=== PATIENT | female | born 2000 | race Caucasian/White ===

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

== ENCOUNTER 2020-01-06 09:00 | Outpatient (CLI) | payer BC, MEDICAID ==
[2020-01-06 16:15] LABS: MUDS CUTOFF CONCENTRATIONS CUTOFF CONC BELOW:
[2020-01-06 16:27] LABS: BILIRUBIN,URINE NEGATIVE (NEGATIVE); GLUCOSE, URINE (UA) NEGATIVE (NEGATIVE); KETONES,URINE (UA) NEGATIVE (NEGATIVE); LEUKOCYTE ESTERASE, URINE TRACE (NEGATIVE); NITRITE,URINE POSITIVE (NEGATIVE); OCCULT BLOOD,URINE NEGATIVE (NEGATIVE); PROTEIN,URINE NEGATIVE (NEGATIVE); UROBILINOGEN,URINE 0.2 (NORMAL) E.U./dL (NORMAL)
[2020-01-06 16:36] LABS: CLARITY,URINE HAZY (CLEAR)
[2020-01-06 16:37] LABS: BACTERIA,URINE Many /HPF (None Seen); RBC,URINE 0-5 /HPF (0-5); SQUAMOUS EPITHELIAL CELL,UR MANY Squamous (<= Few)
[2020-01-06 16:42] LABS: AMPHETAMINE SCREEN,URINE NEGATIVE (NEGATIVE); BENZODIAZEPINES SCREEN, URINE NEGATIVE (NEGATIVE); COCAINE SCREEN URINE NEGATIVE (NEGATIVE); METHADONE SCREEN, URINE NEGATIVE (NEGATIVE); METHAMPHETAMINES SCREEN, URINE NEGATIVE (NEGATIVE); OPIATE SCREEN, URINE NEGATIVE (NEGATIVE); OXYCODONE SCREEN, URINE NEGATIVE (NEGATIVE); PROPOXYPHENE SCREEN, URINE NEGATIVE (NEGATIVE); TRICYCLIC ANTIDEPRESSANT,URINE NEGATIVE (NEGATIVE)
== END 2020-01-06 23:59 | disposition home or self-care (01) ==
LOC: LAB.R 09:00
PROVIDERS: ATTEND Obstetrics & Gynecology
DX: Z32.01 Encounter for pregnancy test, result positive (principal)
CPT/HCPCS: 80306; 81001; 87086

== ENCOUNTER 2020-01-09 18:24 | Outpatient (CLI) | payer MEDICAID | END 2020-01-09 18:25 | disposition home or self-care (01) | LOC: COV 18:24 | PROVIDERS: ATTEND Family Medicine | DX: Z20.828 Contact with and (suspected) exposure to other viral communicable diseases (principal) ==

== ENCOUNTER 2020-01-18 13:52 | Outpatient (CLI) | payer MEDICAID ==
--- NOTE | 2020-01-18 16:07 | Ultrasound Report ---
PROCEDURE: OB First Trimester w/TV INDICATIONS: POSTIVE TEST OUTSIDE/PRIOR DATING DATA: Last menstrual period (LMP): 12/06/2019. LMP-based estimated date of delivery (STAN): 09/11/2020. First dating scan (date and location): 01/18/2020. Estimated date of delivery (STAN) from first dating scan: 09/12/2020. TECHNIQUE: Real-time scanning was performed of the fetus and maternal pelvic organs, with image documentation. Endovaginal scanning was also performed to better visualize the fetus and maternal ovaries. COMPARISON: None FINDINGS: Embryo: Single change from previous is identified with crown-rump length measuring 0.35 mm correspon ding to 6 weeks 0 days. heart tones are detected at 100 bpm. There is a small subchorionic hemo rrhage measuring 33 x 13 x 22 mm. Measurement variability in dating: +/- 4 weeks by LMP, +/- 7 days by mean sac diameter (use before 6 weeks gestation if crown-rump length not able to be measured), +/- 5 days by crown-rump length (6-12 weeks gestation). Maternal organs: Ovaries demonstrate a left corpus luteal cyst.. Limited images through the kidneys demonstrate no hydronephrosis. IMPRESSION: 1. Single live intrauterine with ultrasound gestational age of 6 weeks 0 days corresponding to ultrasound STAN of 09/12/2020. 2. Small subchorionic hemorrhage. 3. Recommend follow-up imaging at 20-22 weeks for dates and anatomy. Reviewed by: Gosia Salinas MD on 01/18/2020 4:06 PM PST Approved by: Gosia Salinas MD on 01/18/2020 4:06 PM PST Station ID: [id number]
== END 2020-01-18 13:53 | disposition home or self-care (01) ==
LOC: DI 13:52
PROVIDERS: ATTEND Obstetrics & Gynecology
DX: O20.9 Hemorrhage in early pregnancy, unspecified (principal); Z3A.01 Less than 8 weeks gestation of pregnancy
CPT/HCPCS: 76801; 76817

== ENCOUNTER 2020-02-09 08:00 | Outpatient (CLI) | payer MEDICAID ==
[2020-02-09 22:21] LABS: TRICHOMONAS VAGINALIS DNA NEGATIVE (NEGATIVE)
== END 2020-02-09 23:59 | disposition home or self-care (01) ==
LOC: LAB.WC 08:00
PROVIDERS: ATTEND Obstetrics & Gynecology
DX: Z11.3 Encounter for screening for infections with a predominantly sexual mode of transmission (principal)
CPT/HCPCS: 87491; 87591; 87661

== ENCOUNTER 2020-03-01 15:06 | Outpatient (CLI) | payer MEDICAID ==
[2020-03-01 15:50] LABS: BASOPHILS % (AUTO) 0.3 %; EOSINOPHILS # (AUTO) 0.1 10^3/uL (0.0-0.7); EOSINOPHILS % (AUTO) 0.9 %; HCT - HEMATOCRIT 36.3 % (37.0-47.0); HGB - HEMOGLOBIN 12.3 g/dL (12.0-16.0); LYMPHOCYTES # (AUTO) 2.3 10^3/uL (1.5-3.5); LYMPHOCYTES % (AUTO) 19.7 %; MEAN CORPUSCULAR HEMOGLOBIN 31.1 pg (27.0-31.0); MEAN CORPUSCULAR HGB CONC 33.9 g/dL (32.0-36.0); MEAN CORPUSCULAR VOLUME 91.7 fL (81.0-99.0); MEAN PLATELET VOLUME 9.3 fL (7.9-10.8); MONOCYTES # (AUTO) 0.3 10^3/uL (0.0-1.0); MONOCYTES % (AUTO) 2.9 %; NEUTROPHILS # (AUTO) 8.8 10^3/uL (1.5-6.6); NEUTROPHILS % (AUTO) 75.7 %; PLT - PLATELET COUNT 319 10^3/uL (130-450); RED BLOOD COUNT 3.96 10^6/uL (4.20-5.40); RED CELL DISTRIBUTION WIDTH 12.1 % (12.0-15.0); WHITE BLOOD COUNT 11.6 x10^3/uL (4.8-10.8)
[2020-03-03 13:44] LABS: HEPATITIS B SURFACE ANTIGEN NON-REACTIVE (NON-REACTIVE); HEPATITIS C ANTIBODY NON-REACTIVE (NON-REACTIVE)
[2020-03-03 14:26] LABS: HIV AG/AB 4TH GEN NON-REACTIVE (NON-REACTIVE)
== END 2020-03-01 15:07 | disposition home or self-care (01) ==
LOC: LAB 15:06
PROVIDERS: ATTEND Obstetrics & Gynecology
DX: Z36.89 Encounter for other specified antenatal screening (principal)
CPT/HCPCS: 36415; 81599; 85025; 86592; 86762; 86787; 86803; 86850; 86900; 86901; 87340; 87389

== ENCOUNTER 2020-03-30 16:03 | Outpatient (CLI) | payer MEDICAID | END 2020-03-30 16:04 | disposition home or self-care (01) | LOC: LAB 16:03 | PROVIDERS: ATTEND Obstetrics & Gynecology | DX: O09.90 Supervision of high risk pregnancy, unspecified, unspecified trimester (principal) | CPT/HCPCS: 36415; 81511; 81599 ==

== ENCOUNTER 2020-04-13 08:00 | Outpatient (CLI) | payer MEDICAID ==
[2020-04-13 21:21] LABS: CANDIDA GROUP DNA POSITIVE (NEGATIVE); CANDIDA KRUSEI DNA NEGATIVE (NEGATIVE); TRICHOMONAS VAGINALIS DNA NEGATIVE (NEGATIVE)
== END 2020-04-13 23:59 | disposition home or self-care (01) ==
LOC: LAB.R 08:00
PROVIDERS: ATTEND Advanced Practice Midwife
DX: N89.8 Other specified noninflammatory disorders of vagina (principal)
CPT/HCPCS: 87661; 87801

== ENCOUNTER 2020-04-24 12:29 | Outpatient (CLI) | payer MEDICAID ==
--- NOTE | 2020-04-24 17:17 | Ultrasound Report ---
PROCEDURE: OB Detailed Eval INDICATIONS: SUPERVISION OF HIGH RISK OUTSIDE/PRIOR DATING DATA: Last menstrual period (LMP): 12/06/2019. LMP-based estimated date of delivery (STAN): 09/12/2019. First dating scan (date and location): 03/19/2019. Estimated date of delivery (STAN) from provider stated STAN: 09/11/2020. TECHNIQUE: Real-time scanning was performed of the fetus, with image documentation and biometric measurements. COMPARISON: OB ultrasound 01/18/2020 FINDINGS: General: A single living intrauterine gestation is present. Presentation: Vertex Placenta: Placental position is anterior, without previa. Amniotic fluid index: 13.3 cm, 39th percentile for gestational age, largest pocket 4 cm . heart rate: 157 beats per minute. Maternal cervical canal: 4.3 cm long; normal length is 2.5 cm or more. biometrics: Biparietal diameter: 4.3 cm 19 weeks 2 days Head circumference: 19.4 cm 20 weeks 0 days Abdominal circumference: 14.7 cm 20 weeks 0 days Femur length: 3.5 cm 21 weeks 0 days Estimated gestational age from initial scan: 20 weeks 0 days Composite gestational age from present scan: 19 weeks 6 days Estimated weight and percentile: 349 g 67th percentile Measurement variability in biometric dating: +/- 10 days from 12-20 weeks gestation, +/- 2 weeks from 20-30 weeks gestation, +/- 3 weeks at 30 weeks gestation or later. Anatomic survey: Neuro: Ventricles are normal at less than 10 mm. Cisterna magna is normal at 3-11 mm. Cerebellum i s normal in size and morphology. Nuchal skin fold: Normal at less than 6 mm between 14 and 20 weeks gestational age. Face: Nose and lips, facial profile are normal. Spine: No evidence for spina bifida. Heart: 4-chambered heart is present, with normal ventricular outflow tracts. Diaphragm: Diaphragm is intact. Stomach: Left-sided stomach is present. Kidneys: No hydronephrosis. Normal is less than 5 mm in 2nd trimester, less than 7 mm in 3rd trimester. Cord: 3 vessel cord has orthotopic insertion. Bladder: Normal in size. Extremities: All 4 extremities are visualized. IMPRESSION: 1. Single live intrauterine with appropriate growth. 2. Anatomy is within normal limits. Reviewed by: Gosia Salinas MD on 04/24/2020 4:16 PM AKST Approved by: Gosia Salinas MD on 04/24/2020 4:16 PM AKST Station ID: [id number]
== END 2020-04-24 12:30 | disposition home or self-care (01) ==
LOC: DI 12:29
PROVIDERS: ATTEND Obstetrics & Gynecology
DX: O09.92 Supervision of high risk pregnancy, unspecified, second trimester (principal); Z36.89 Encounter for other specified antenatal screening; Z3A.19 19 weeks gestation of pregnancy

== ENCOUNTER 2020-06-11 12:20 | Outpatient (CLI) | payer MEDICAID ==
[2020-06-11 12:44] LABS: BASOPHILS % (AUTO) 0.1 %; EOSINOPHILS # (AUTO) 0.1 10^3/uL (0.0-0.7); HCT - HEMATOCRIT 34.2 % (37.0-47.0); HGB - HEMOGLOBIN 11.9 g/dL (12.0-16.0); LYMPHOCYTES # (AUTO) 2.1 10^3/uL (1.5-3.5); LYMPHOCYTES % (AUTO) 20.4 %; MEAN CORPUSCULAR HEMOGLOBIN 32.1 pg (27.0-31.0); MEAN CORPUSCULAR HGB CONC 34.8 g/dL (32.0-36.0); MEAN CORPUSCULAR VOLUME 92.2 fL (81.0-99.0); MEAN PLATELET VOLUME 9.3 fL (7.9-10.8); MONOCYTES # (AUTO) 0.4 10^3/uL (0.0-1.0); MONOCYTES % (AUTO) 3.8 %; NEUTROPHILS # (AUTO) 7.8 10^3/uL (1.5-6.6); NEUTROPHILS % (AUTO) 74.2 %; PLT - PLATELET COUNT 277 10^3/uL (130-450); RED BLOOD COUNT 3.71 10^6/uL (4.20-5.40); RED CELL DISTRIBUTION WIDTH 12.8 % (12.0-15.0); WHITE BLOOD COUNT 10.5 x10^3/uL (4.8-10.8)
[2020-06-11 12:58] LABS: BILIRUBIN,URINE NEGATIVE (NEGATIVE); GLUCOSE, URINE (UA) NEGATIVE (NEGATIVE); KETONES,URINE (UA) NEGATIVE (NEGATIVE); LEUKOCYTE ESTERASE, URINE NEGATIVE (NEGATIVE); NITRITE,URINE NEGATIVE (NEGATIVE); OCCULT BLOOD,URINE NEGATIVE (NEGATIVE); PH,URINE 6.5 PH (5.0-7.5); PROTEIN,URINE NEGATIVE (NEGATIVE); UROBILINOGEN,URINE 0.2 (NORMAL) E.U./dL (NORMAL)
[2020-06-11 12:58] LABS: ALBUMIN 3.2 g/dL (3.2-5.5); ALBUMIN/GLOBULIN RATIO 0.9 (1.0-2.2); BILIRUBIN,TOTAL 0.4 mg/dL (0.2-1.0); CALCIUM 9.7 mg/dL (8.5-10.3); CREATININE 0.4 mg/dL (0.4-1.0); POTASSIUM 3.4 mmol/L (3.5-5.0); TOTAL PROTEIN 6.7 g/dL (6.7-8.2)
[2020-06-11 12:59] LABS: CLARITY,URINE CLEAR (CLEAR)
[2020-06-11 13:03] LABS: CREATININE,URINE 146.1 mg/dL; PROTEIN/CREATININE RATIO,URINE 0.1 (<=0.2)
[2020-06-11 13:12] LABS: BACTERIA,URINE Moderate /HPF (None Seen); RBC,URINE 0-5 /HPF (0-5); SQUAMOUS EPITHELIAL CELL,UR MANY Squamous (<= Few); WBC,URINE 0-3 /HPF (0-5)
[2020-06-11 14:02] VITALS: BP 123/73
--- NOTE | 2020-06-11 15:04 | Ultrasound Report ---
PROCEDURE: OB F/U or Repeat INDICATIONS: Elevated blood pressures OUTSIDE/PRIOR DATING DATA: Last menstrual period (LMP): 12/06/2019. LMP-based estimated date of delivery (STAN): 09/11/2020. First dating scan (date and location): 01/18/2020. Estimated date of delivery (STAN) from first dating scan: 09/12/2020. TECHNIQUE: Real-time scanning was performed of the fetus, with image documentation and biometric measurements. Endovaginal scanning: Not needed COMPARISON: Prior OB ultrasound 01/18/2020 and 04/24/2020 FINDINGS: General: A single living intrauterine gestation is present. Presentation: Vertex Placenta: Placental position is anterior, without previa. Amniotic fluid index: 14.7 cm, 51st percentile for gestational age. heart rate: 162 beats per minute. Maternal cervical canal: Normal length, closed. biometrics: Biparietal diameter: 6.7 cm, 26 weeks 6 days Head circumference: 15.6 cm, 27 weeks 5 days Abdominal circumference: 23.5 cm, 27 weeks 6 days Femur length: 5.2 cm, 27 weeks 5 days Estimated gestational age from initial scan: 26 weeks 6 days. Composite gestational age from present scan: 27 weeks 4 days Estimated weight and percentile: 111 7 g, 74th percentile for gestational age Measurement variability in biometric dating: +/- 10 days from 12-20 weeks gestation, +/- 2 weeks from 20-30 weeks gestation, +/- 3 weeks at 30 weeks gestation or more. Other: Not applicable. IMPRESSION: Normal amniotic fluid volume, appropriate interval growth, no anomaly seen. Reviewed by: David Mack MD on 06/11/2020 3:02 PM PDT Approved by: David Mack MD on 06/11/2020 3:02 PM PDT Station ID: [id number]
--- NOTE | 2020-06-12 15:21 | PROCEDURE REPORT ---
- HPI Diagnosis/Indication for NST: Other (elevated blood pressure without diagnosis of HTN) Current EDU 09/11/20 Gestation 26 Weeks and 6 Days 2 Para 1 Vital Signs Temperature 99.8 F 06/11/20 12:28 Temperature 99.8 F 06/11/20 12:28 Heart Rate 102 H 06/11/20 12:38 Respiratory Rate 16 06/11/20 12:38 Blood Pressure 123/73 06/11/20 14:01 O2 Saturation - NST Procedure NST Procedure Start Date 06/11/20 Start Time 12:33 Stop Time 13:00 Vibroacoustic Stimulation Used No Patient States Movement Yes - Results and Plan Findings/Impression: Baseline: BPM 150 Variability: Moderate Accelerations: Present Decelerations: Absent Trends in FHR over time: no changes [place] contractions in 10 minutes: 0 Impression: reactive Category 1 NST Elevated BP at home, normal PIH labs and BP here, keep BP log and f/u in 1w.
== END 2020-06-11 14:40 | disposition home or self-care (01) ==
LOC: WFO 12:20 → FBP 12:21 → WFO 14:40
PROVIDERS: ATTEND Obstetrics & Gynecology
DX: O99.891 Other specified diseases and conditions complicating pregnancy (principal); R03.0 Elevated blood-pressure reading, without diagnosis of hypertension; Z3A.26 26 weeks gestation of pregnancy
CPT/HCPCS: 59025; 80053; 81001; 82570; 84156; 85025; 87086; 99212

== ENCOUNTER 2020-06-14 10:56 | Outpatient (CLI) | payer MEDICAID ==
[2020-06-14 12:13] LABS: HCT - HEMATOCRIT 33.9 % (37.0-47.0); HGB - HEMOGLOBIN 11.7 g/dL (12.0-16.0); MEAN CORPUSCULAR HEMOGLOBIN 31.7 pg (27.0-31.0); MEAN CORPUSCULAR HGB CONC 34.5 g/dL (32.0-36.0); MEAN CORPUSCULAR VOLUME 91.9 fL (81.0-99.0); MEAN PLATELET VOLUME 9.3 fL (7.9-10.8); RED BLOOD COUNT 3.69 10^6/uL (4.20-5.40)
== END 2020-06-14 10:57 | disposition home or self-care (01) ==
LOC: LAB 10:56
PROVIDERS: ATTEND Obstetrics & Gynecology
DX: Z36.89 Encounter for other specified antenatal screening (principal)
CPT/HCPCS: 36415; 82950; 85027

== ENCOUNTER 2020-06-26 09:55 | Outpatient (CLI) | payer MEDICAID ==
[2020-06-26 10:53] LABS: ALBUMIN 3.2 g/dL (3.2-5.5); ALBUMIN/GLOBULIN RATIO 0.8 (1.0-2.2); BILIRUBIN,TOTAL 0.4 mg/dL (0.2-1.0); CALCIUM 9.5 mg/dL (8.5-10.3); CREATININE 0.4 mg/dL (0.4-1.0); POTASSIUM 3.8 mmol/L (3.5-5.0)
[2020-06-26 10:54] LABS: HCT - HEMATOCRIT 34.3 % (37.0-47.0); MEAN CORPUSCULAR HEMOGLOBIN 32.3 pg (27.0-31.0); MEAN CORPUSCULAR VOLUME 92.5 fL (81.0-99.0); MEAN PLATELET VOLUME 9.4 fL (7.9-10.8); PROTEIN/CREATININE RATIO,URINE 0.1 (<=0.2); RED BLOOD COUNT 3.71 10^6/uL (4.20-5.40); RED CELL DISTRIBUTION WIDTH 13.2 % (12.0-15.0); WHITE BLOOD COUNT 10.5 x10^3/uL (4.8-10.8)
== END 2020-06-26 09:56 | disposition home or self-care (01) ==
LOC: LAB 09:55
PROVIDERS: ATTEND Obstetrics & Gynecology
DX: O13.3 Gestational [pregnancy-induced] hypertension without significant proteinuria, third trimester (principal)
CPT/HCPCS: 36415; 80053; 82570; 84156; 85027

== ENCOUNTER 2020-07-11 13:49 | Outpatient (CLI) | payer MEDICAID | END 2020-07-11 13:50 | disposition EMS.NT | LOC: EMS 13:49 | DX: O99.891 Other specified diseases and conditions complicating pregnancy (principal); R42 Dizziness and giddiness; H53.8 Other visual disturbances; R44.0 Auditory hallucinations ==

== ENCOUNTER 2020-07-11 15:13 | Outpatient (CLI) | payer MEDICAID ==
[2020-07-11 16:00] VITALS: BP 113/68
[2020-07-11 16:01] LABS: BASOPHILS % (AUTO) 0.2 %; EOSINOPHILS # (AUTO) 0.1 10^3/uL (0.0-0.7); EOSINOPHILS % (AUTO) 0.5 %; HCT - HEMATOCRIT 33.8 % (37.0-47.0); HGB - HEMOGLOBIN 11.7 g/dL (12.0-16.0); LYMPHOCYTES # (AUTO) 1.8 10^3/uL (1.5-3.5); LYMPHOCYTES % (AUTO) 16.3 %; MEAN CORPUSCULAR HEMOGLOBIN 31.7 pg (27.0-31.0); MEAN CORPUSCULAR HGB CONC 34.6 g/dL (32.0-36.0); MEAN CORPUSCULAR VOLUME 91.6 fL (81.0-99.0); MEAN PLATELET VOLUME 9.2 fL (7.9-10.8); MONOCYTES # (AUTO) 0.5 10^3/uL (0.0-1.0); MONOCYTES % (AUTO) 4.4 %; NEUTROPHILS # (AUTO) 8.5 10^3/uL (1.5-6.6); NEUTROPHILS % (AUTO) 78.2 %; PLT - PLATELET COUNT 265 10^3/uL (130-450); RED BLOOD COUNT 3.69 10^6/uL (4.20-5.40); RED CELL DISTRIBUTION WIDTH 12.8 % (12.0-15.0); WHITE BLOOD COUNT 10.9 x10^3/uL (4.8-10.8)
[2020-07-11 16:13] LABS: ALBUMIN 3.1 g/dL (3.2-5.5); ALBUMIN/GLOBULIN RATIO 0.9 (1.0-2.2); BILIRUBIN,TOTAL 0.4 mg/dL (0.2-1.0); CALCIUM 9.2 mg/dL (8.5-10.3); CREATININE 0.4 mg/dL (0.4-1.0); POTASSIUM 3.7 mmol/L (3.5-5.0); TOTAL PROTEIN 6.5 g/dL (6.7-8.2)
[2020-07-11 16:21] LABS: CREATININE,URINE 15.3 mg/dL
[2020-07-11 16:25] LABS: TOTAL PROTEIN,URINE TIMED < 6 mg/dL
--- NOTE | 2020-07-11 16:59 | PROVIDER PROGRESS NOTE ---
- HPI Current : Current [facility] 09/11/20 Gestation 31 Weeks and 1 Days 2 Para 1 Vital Signs Temperature 98.4 F 07/11/20 15:23 Heart Rate 123 H 07/11/20 15:23 Respiratory Rate 17 07/11/20 15:23 Blood Pressure 120/68 07/11/20 15:23 O2 Saturation 99 07/11/20 15:23 Temperature 98.4 F 07/11/20 15:23 Heart Rate 98 07/11/20 15:30 Respiratory Rate 17 07/11/20 15:23 Blood Pressure 113/68 07/11/20 16:00 O2 Saturation 99 07/11/20 15:23 - Procedures NST Procedure: NST Procedure Start Date 07/11/20 Start Time 15:20 Stop Time 16:00 Vibroacoustic Stimulation Used No - Plan Plan: CC: fainted HPI: was picking up around the house and wiping down the cabinets when she suddenly saw white stars/fireworks, heard ringing in her ears, felt flushed, felt faint. Went to couch to lay down. Called her mom because she didn't feel like she could parent and she has a small child at home. Mother called ambulance. Now feeling fine. ROS: mild ARAUJO, chronic. No upper abd pain, chest pain, shortness of breath, vaginal bleeding, leaking of fluid, or contractions. PMH: see scanned chart; reviewed AVSS Alert, NAD Baseline: BPM 140 Variability: Moderate Accelerations: Present Decelerations: Absent Trends in FHR over time: no changes [place] contractions in 10 minutes: 0 Impression: reactive Category 1 NST Labs: normal PIH, P:C 0, gluc 80s A/P: 19yo P1 at 31w with preg complicated by gestational HTN and gestational diabetes--had a classic vasovagal event at home likely precipitated by being on her feet. No evidence of preclampsia, no current sx. F/u PRN ongoing issues. Recommended hydration and immediate squat then lay down PRN feeling the same.
== END 2020-07-11 16:45 | disposition home or self-care (01) ==
LOC: WFO 15:13 → FBP 15:16 → WFO 16:45
PROVIDERS: ATTEND Obstetrics & Gynecology
DX: O99.891 Other specified diseases and conditions complicating pregnancy (principal); R55 Syncope and collapse; O24.419 Gestational diabetes mellitus in pregnancy, unspecified control; O13.3 Gestational [pregnancy-induced] hypertension without significant proteinuria, third trimester; Z3A.31 31 weeks gestation of pregnancy
CPT/HCPCS: 36415; 59025; 80053; 82570; 84156; 85025; 99213; 99214

== ENCOUNTER 2020-07-12 19:41 | Outpatient (CLI) | payer MEDICAID ==
--- NOTE | 2020-07-13 16:37 | Ultrasound Report ---
PROCEDURE: OB F/U or Repeat INDICATIONS: GESTATIONAL DIABETES, HTN OUTSIDE/PRIOR DATING DATA: Last menstrual period (LMP): 12/06/2019. LMP-based estimated date of delivery (STAN): 09/11/2020. First dating scan (date and location): 01/18/2020. Estimated date of delivery (STAN) from first dating scan: 09/12/2020. TECHNIQUE: Real-time scanning was performed of the fetus, with image documentation and biometric measurements. Endovaginal scanning: Not needed COMPARISON: All prior OB ultrasound studies for this . FINDINGS: General: A single living intrauterine gestation is present. Presentation: Vertex Placenta: Placental position is anterior, without previa. Amniotic fluid index: 13.9 cm, 44th percentile for gestational age. heart rate: 147 beats per minute. Maternal cervical canal: 3.6 cm long; normal length is 2.5 cm or more. biometrics: Biparietal diameter: 7.9 cm, 31 weeks 6 days Head circumference: 29.5 cm, 32 weeks 4 days Abdominal circumference: 27.7 cm, 31 weeks 5 days Femur length: 6.3 cm, 32 weeks 4 days Estimated gestational age from initial scan: 31 weeks 2 days. Composite gestational age from present scan: 32 weeks 1 day Estimated weight and percentile: 1900 g, 65.6 percentile Measurement variability in biometric dating: +/- 10 days from 12-20 weeks gestation, +/- 2 weeks from 20-30 weeks gestation, +/- 3 weeks at 30 weeks gestation or more. Other: No anomaly seen. IMPRESSION: Appropriate interval growth, no anomaly seen. Current estimated weight is at the 65.6 percentile for current gestational age. Reviewed by: David Mack MD on 07/13/2020 4:35 PM PDT Approved by: David Mack MD on 07/13/2020 4:35 PM PDT Station ID: [id number]
== END 2020-07-12 19:42 | disposition home or self-care (01) ==
LOC: DI 19:41
PROVIDERS: ATTEND Obstetrics & Gynecology
DX: O24.419 Gestational diabetes mellitus in pregnancy, unspecified control (principal); O13.3 Gestational [pregnancy-induced] hypertension without significant proteinuria, third trimester; Z3A.32 32 weeks gestation of pregnancy

== ENCOUNTER 2020-07-26 11:01 | Outpatient (CLI) | payer MEDICAID ==
--- NOTE | 2020-07-26 15:37 | Ultrasound Report ---
PROCEDURE: OB Biophysical Profile INDICATIONS: Nonreactive NST OUTSIDE/PRIOR DATING DATA: Last menstrual period (LMP): 12/06/2019. LMP-based estimated date of delivery (STAN): 09/11/2020. First dating scan (date and location): 01/18/2020,. Dr. Mariola Earl Estimated date of delivery (STAN) from first dating scan: 09/12/2020. The below data below was generated using the provider stated STAN of 09/11/2020 TECHNIQUE: Real-time scanning was performed of the fetus, with image documentation and biometric serena surements. Biophysical profile was also obtained. Endovaginal scanning: Not performed COMPARISON: None. FINDINGS: General: A single living intrauterine gestation is present. Presentation: Cephalic Placenta: Placental position is anterior, without previa. Amniotic fluid index: 18.1 cm. Largest vertical pocket 5 cm heart rate: 155 beats per minute. Maternal cervical canal: Not visualized biometrics: Not performed anatomy: chest, stomach abdomen, kidneys and bladder are unremarkable. Biophysical profile: Tone: 2 points. Movement: 2 points. Respiration: 2 points. Largest pocket of fluid: 2 points. Umbilical artery Doppler: SD ratios 2.9, 2.6, 2.7 at abdomen, mid and placental cord respectively IMPRESSION: Limited OB ultrasound with biophysical profile 8 out of 8 heart rate 155 bpm, DAMIÁN 18.1 cm Cephalic presentation Reviewed by: Max Smith MD on 07/26/2020 2:36 PM AKALINA Approved by: Max Smith MD on 07/26/2020 2:36 PM AKDT Station ID: [id number]
--- NOTE | 2020-08-02 09:38 | PROCEDURE REPORT ---
- HPI Diagnosis/Indication for NST: Gestational Diabetes Current EDU 09/11/20 Gestation 33 Weeks and 2 Days 2 Para 1 - NST Procedure NST Procedure Start Date 07/26/20 Start Time 11:15 Stop Time 11:50 Vibroacoustic Stimulation Used Yes: Used without result at 1200 - Results and Plan Findings/Impression: initaly notified that NST was unreactive. BPP ordered. strip became reactive. BPP 10/07 Plan: continue testing
== END 2020-07-26 14:30 | disposition home or self-care (01) ==
LOC: WFO 11:01 → FBP 11:07 → WFO 14:30
PROVIDERS: ATTEND Obstetrics & Gynecology
DX: O24.419 Gestational diabetes mellitus in pregnancy, unspecified control (principal); Z3A.33 33 weeks gestation of pregnancy
CPT/HCPCS: 59025; 99213

== ENCOUNTER 2020-07-30 | Outpatient (CLI) | payer MEDICAID ==
--- NOTE | 2020-09-08 15:59 | PROCEDURE REPORT ---
- HPI Current EDU 09/11/20 Gestation 33 Weeks and 6 Days 2 Para 1 Vital Signs Temperature 97.3 F L 07/30/20 14:15 Heart Rate 133 H 07/30/20 14:15 Respiratory Rate 07/30/20 14:15 Blood Pressure 127/74 07/30/20 14:15 O2 Saturation 98 07/30/20 14:15 Temperature 97.3 F L 07/30/20 14:15 Heart Rate 133 H 07/30/20 14:15 Respiratory Rate 07/30/20 14:15 Blood Pressure 127/74 07/30/20 14:15 O2 Saturation 98 07/30/20 14:15 - NST Procedure NST Procedure Start Date 07/30/20 Start Time 14:10 Stop Time 14:30 Vibroacoustic Stimulation Used No Patient States Movement No: no movement today EFM 140 mod izzy 15x15 accels no decels TOCO: quiet - Results and Plan Findings/Impression: Patient is a 20 yo at 34+6 with GHTN and hx of preeclampsia here for NST Cat I tracing Cont with twice weekly NST and weekly DAMIÁN DX: IUP at 33+6 wga GHTN Hx of pre-eclampsia DOS 07/30/20 NST read 07/30/20
== END 2020-07-30 14:37 | disposition home or self-care (01) ==
CPT/HCPCS: 59025

== ENCOUNTER 2020-07-31 10:55 | Outpatient (CLI) | payer MEDICAID ==
[2020-07-31 12:24] VITALS: BP 117/68
--- NOTE | 2020-07-31 14:19 | Ultrasound Report ---
PROCEDURE: OB Limited INDICATIONS: STAN 09/11/2020. Vaginal bleeding, decreased FM OUTSIDE/PRIOR DATING DATA: Last menstrual period (LMP): 12/06/2019. LMP-based estimated date of delivery (STAN): 09/11/2020. First dating scan (date and location): 01/18/2020. Estimated date of delivery (STAN) from first dating scan: 09/12/2020. TECHNIQUE: Real-time scanning was performed of the fetus, with image documentation. Endovaginal scanning: Not needed COMPARISON: All prior OB ultrasound studies for this . FINDINGS: A single living intrauterine gestation is present. Presentation: Vertex Placenta: Placental position is anterior, without previa. Amniotic fluid index: 13.7 cm, normal for gestational age. heart rate: 147 beats per minutes. Maternal cervical canal: 4.2 cm long; normal length is 2.5 cm or more. Estimated gestational age from initial scan: 34 weeks 0 days. IMPRESSION: No sign of placental abruption. Anterior placenta. Normal amniotic fluid volume. Current ly noted is a nuchal cord, single wrap morphologically. Reviewed by: David Mack MD on 07/31/2020 1:18 PM CEDRIC Approved by: David Mack MD on 07/31/2020 1:18 PM CEDRIC Station ID: [id number]
--- NOTE | 2020-07-31 14:27 | PROCEDURE REPORT ---
- HPI Diagnosis/Indication for NST: Decreased movement (NOTED DECREASED FM, AND SPOTTING.) Current EDU 09/11/20 Gestation 34 Weeks and 0 Days 2 Para 1 Vital Signs Temperature 36.7 C 07/31/20 11:30 Blood Pressure 97/51 L 07/31/20 11:30 Temperature 36.7 C 07/31/20 13:13 Heart Rate Respiratory Rate Blood Pressure 117/68 07/31/20 12:00 O2 Saturation - NST Procedure NST Procedure Start Date 07/31/20 Start Time 11:01 Stop Time 12:10 Vibroacoustic Stimulation Used No Patient States Movement Yes - Results and Plan Findings/Impression: REACTIVE NST WITH NORMAL US.
== END 2020-07-31 12:30 | disposition home or self-care (01) ==
LOC: WFO 10:55 → OBS 10:56 → FBP 11:12 → WFO 12:30
PROVIDERS: ATTEND Obstetrics & Gynecology
DX: O26.853 Spotting complicating pregnancy, third trimester (principal); O36.8130 Decreased fetal movements, third trimester, not applicable or unspecified; Z3A.34 34 weeks gestation of pregnancy
CPT/HCPCS: 59025; 99214

== ENCOUNTER 2020-08-02 | Outpatient (CLI) | payer MEDICAID ==
--- NOTE | 2020-08-31 00:21 | PROCEDURE REPORT ---
- HPI Diagnosis/Indication for NST: Gestational Hypertension Current EDU 09/11/20 Gestation 34 Weeks and 2 Days 2 Para 1 Vital Signs Temperature 98.1 F 08/02/20 11:08 Heart Rate 98 08/02/20 11:08 Respiratory Rate 20 08/02/20 11:08 Blood Pressure 121/68 08/02/20 11:08 O2 Saturation 96 08/02/20 11:08 Temperature 98.1 F 08/02/20 11:08 Heart Rate 98 08/02/20 11:08 Respiratory Rate 20 08/02/20 11:08 Blood Pressure 121/68 08/02/20 11:08 O2 Saturation 96 08/02/20 11:08 - NST Procedure NST Procedure Start Date 08/02/20 Start Time 11:05 Stop Time 11:45 Vibroacoustic Stimulation Used No Patient States Movement Yes EFM 130 mod izzy 15x15 accels no decels TOCO: quiet - Results and Plan Findings/Impression: Patient is a 20 yo at 34+2 with GHTN and hx of preeclampsia here for NST Cat I tracing Cont with twice weekly NST and weekly DAMIÁN DX: IUP at 34+2 wga GHTN Hx of pre-eclampsia DOS 08/02/20 NST read 08/02/20
== END 2020-08-02 11:50 | disposition home or self-care (01) ==
CPT/HCPCS: 59025

== ENCOUNTER 2020-08-02 08:54 | Outpatient (CLI) | payer MEDICAID ==
--- NOTE | 2020-08-02 10:22 | Ultrasound Report ---
PROCEDURE: OB Limited INDICATIONS: GESTATIONAL DIABETES, GESTATIONAL HTN OUTSIDE/PRIOR DATING DATA: Last menstrual period (LMP): 12/06/2019. LMP-based estimated date of delivery (STAN): 09/11/2020. First dating scan (date and location): 01/18/2020. Estimated date of delivery (STAN) from first dating scan: 09/12/2020. The below data below was generated using the STAN of 09/12/2020 TECHNIQUE: Real-time scanning was performed of the fetus, with image documentation. Endovaginal scanning: Not needed COMPARISON: All prior OB ultrasound studies for this . FINDINGS: A single living intrauterine gestation is present. Presentation: Vertex Placenta: Placental position is anterior, without previa. Amniotic fluid index: 13.7 cm, normal for gestational age. heart rate: 147 beats per minutes. Maternal cervical canal: 4.2 cm long; normal length is 2.5 cm or more. Estimated gestational age from initial scan: 34 weeks 0 days Note: There is no sign of placental abruption. Note is made of a nuchal cord. IMPRESSION: Single living intrauterine gestation, nuchal cord incidentally, vertex presentation. Jadon alvares called to the ordering health care providers nurse, Taty, at time of completion of the study . Reviewed by: David Mack MD on 08/02/2020 9:21 AM CEDRIC Approved by: David Mack MD on 08/02/2020 9:21 AM CEDRIC Station ID: [id number]
== END 2020-08-02 08:55 | disposition home or self-care (01) ==
LOC: DI 08:54
PROVIDERS: ATTEND Obstetrics & Gynecology
DX: O24.419 Gestational diabetes mellitus in pregnancy, unspecified control (principal); O13.3 Gestational [pregnancy-induced] hypertension without significant proteinuria, third trimester

== ENCOUNTER 2020-08-06 10:57 | Outpatient (CLI) | payer MEDICAID ==
[2020-08-06 11:23] VITALS: BP 117/76
--- NOTE | 2020-08-31 00:16 | PROCEDURE REPORT ---
- HPI Diagnosis/Indication for NST: Gestational Hypertension Current EDU 09/11/20 Gestation 34 Weeks and 6 Days 2 Para 1 Vital Signs Temperature 97.5 F L 08/06/20 11:10 Heart Rate 108 H 08/06/20 11:10 Respiratory Rate 08/06/20 11:10 Blood Pressure 117/76 08/06/20 11:10 Temperature 97.5 F L 08/06/20 11:10 Heart Rate 108 H 08/06/20 11:10 Respiratory Rate 08/06/20 11:10 Blood Pressure 117/76 08/06/20 11:10 O2 Saturation - NST Procedure NST Procedure Start Date 08/06/20 Start Time 11:07 Stop Time 11:28 Vibroacoustic Stimulation Used No Patient States Movement No EFM 150 mod izzy 15x15 accels no decels TOCO: quiet - Results and Plan Findings/Impression: Patient is a 20 yo at 34+6 wga with affected by GHTN here for NST Cat I tracing Cont with twice weekly NST and weekly DAMIÁN DX: IUP at 34+6 GHTN NST read 08/06/20 DOS 08/06/20
== END 2020-08-06 11:35 | disposition home or self-care (01) ==
LOC: WFO 10:57 → FBP 11:02 → WFO 11:35
PROVIDERS: ATTEND Obstetrics & Gynecology
DX: O13.3 Gestational [pregnancy-induced] hypertension without significant proteinuria, third trimester (principal); Z3A.34 34 weeks gestation of pregnancy
CPT/HCPCS: 59025

== ENCOUNTER 2020-08-09 08:00 | Outpatient (CLI) | payer MEDICAID | END 2020-08-09 23:59 | disposition home or self-care (01) | LOC: LAB.WC 08:00 | PROVIDERS: ATTEND Obstetrics & Gynecology | DX: Z36.85 Encounter for antenatal screening for Streptococcus B (principal) | CPT/HCPCS: 87797 ==

== ENCOUNTER 2020-08-09 10:59 | Outpatient (CLI) | payer MEDICAID ==
[2020-08-09 11:18] VITALS: BP 116/65
[2020-08-09 12:02] LABS: CREATININE,URINE 248.4 mg/dL; PROTEIN/CREATININE RATIO,URINE 0.1 (<=0.2)
--- NOTE | 2020-08-09 12:22 | PROCEDURE REPORT ---
- HPI Diagnosis/Indication for NST: Gestational Diabetes Current EDU 09/11/20 Gestation 35 Weeks and 2 Days 2 Para 1 Vital Signs Temperature 36.7 C 08/09/20 11:15 Heart Rate 104 H 08/09/20 11:15 Respiratory Rate 18 08/09/20 11:15 Blood Pressure 116/65 08/09/20 11:15 O2 Saturation 98 08/09/20 11:15 Temperature 36.7 C 08/09/20 11:15 Heart Rate 104 H 08/09/20 11:15 Respiratory Rate 18 08/09/20 11:15 Blood Pressure 116/65 08/09/20 11:15 O2 Saturation 98 08/09/20 11:15 - NST Procedure NST Procedure Start Date 08/09/20 Start Time 11:13 Stop Time 11:56 Vibroacoustic Stimulation Used No Patient States Movement Yes - Results and Plan Findings/Impression: Pt has GDM managed with metformin. HERMILO today 116/65.\ reactive NST Plan: continue testing
== END 2020-08-09 12:30 | disposition home or self-care (01) ==
LOC: WFO 10:59 → FBP 11:03 → WFO 12:30
PROVIDERS: ATTEND Obstetrics & Gynecology
DX: O24.419 Gestational diabetes mellitus in pregnancy, unspecified control (principal); O13.3 Gestational [pregnancy-induced] hypertension without significant proteinuria, third trimester; Z3A.35 35 weeks gestation of pregnancy; Z36.85 Encounter for antenatal screening for Streptococcus B
CPT/HCPCS: 59025; 82570; 84156; 87797; 99214; 99215

== ENCOUNTER 2020-08-09 13:56 | Outpatient (CLI) | payer MEDICAID ==
--- NOTE | 2020-08-09 15:08 | Ultrasound Report ---
PROCEDURE: OB Limited INDICATIONS: GESTATIONAL DIABETES, GESTATIONAL HTN OUTSIDE/PRIOR DATING DATA: Last menstrual period (LMP): 12/06/2019. LMP-based estimated date of delivery (STAN): 09/11/2020. First dating scan (date and location): 01/18/2020, Mariola Earl. Estimated date of delivery (STNA) from first dating scan: 09/12/2020. The below data below was generated using the initial ultrasound STAN of 09/12/2020 TECHNIQUE: Real-time scanning was performed of the fetus, with image documentation. Endovaginal scanning: Not performed COMPARISON: None. FINDINGS: A single living intrauterine gestation is present. Presentation: Vertex Placenta: Placental position is anterior, without previa. Amniotic fluid index: 15.4 cm. Largest pocket 5.45 cm heart rate: 137 beats per minutes. Maternal cervical canal: Not identified Estimated gestational age from initial scan: 35 weeks 0 days. anatomy: The chest/diaphragm, stomach/abdomen, renal regions, and bladder were normal. A nuchal cord was incidentally identified. There is no evidence of placental abruption. IMPRESSION: 1. Adequate amniotic fluid index measuring 15.4 cm. Largest pocket 5.45 cm. 2. A nuchal cord is incidentally identified. Reviewed by: Krishna Ozuna on 08/09/2020 3:07 PM PDT Approved by: Krishna Ozuna on 08/09/2020 3:07 PM PDT Station ID: [id number]
== END 2020-08-09 13:57 | disposition home or self-care (01) ==
LOC: DI 13:56
PROVIDERS: ATTEND Obstetrics & Gynecology
DX: O24.419 Gestational diabetes mellitus in pregnancy, unspecified control (principal); O13.3 Gestational [pregnancy-induced] hypertension without significant proteinuria, third trimester

== ENCOUNTER 2020-08-13 10:58 | Outpatient (CLI) | payer MEDICAID ==
[2020-08-13 11:22] VITALS: BP 103/58
--- NOTE | 2020-08-13 19:15 | PROCEDURE REPORT ---
- HPI Current EDU 09/11/20 Gestation 35 Weeks and 6 Days 2 Para 1 Vital Signs Temperature 98.2 F 08/13/20 11:10 Heart Rate 131 H 08/13/20 11:10 Respiratory Rate 18 08/13/20 11:10 Blood Pressure 140/83 H 08/13/20 11:10 O2 Saturation 95 08/13/20 11:10 Temperature 98.2 F 08/13/20 11:10 Heart Rate 133 H 08/13/20 11:21 Respiratory Rate 16 08/13/20 11:21 Blood Pressure 103/58 L 08/13/20 11:21 O2 Saturation 98 08/13/20 11:21 - NST Procedure NST Procedure Start Date 08/13/20 Start Time 11:06 Stop Time 11:30 Vibroacoustic Stimulation Used No Patient States Movement Yes EFM 155 mod izzy 15x15 accels no decel TOCO: quiet - Results and Plan Findings/Impression: 20 yo at 35+6 wga with affected by GHTN here for NST Cat I tracing Initial BP mild range HTN, normal range on repeat Cont with twice weekly NST and weekly DAMIÁN DX: IUP at 35+6 wga GHTN Hx pre-eclamspsia
== END 2020-08-13 11:35 | disposition home or self-care (01) ==
LOC: WFO 10:58 → FBP 11:01 → WFO 11:35
PROVIDERS: ATTEND Obstetrics & Gynecology
DX: O24.419 Gestational diabetes mellitus in pregnancy, unspecified control (principal); O13.3 Gestational [pregnancy-induced] hypertension without significant proteinuria, third trimester; Z3A.35 35 weeks gestation of pregnancy; Z87.59 Personal history of other complications of pregnancy, childbirth and the puerperium; O09.90 Supervision of high risk pregnancy, unspecified, unspecified trimester
CPT/HCPCS: 59025

== ENCOUNTER 2020-08-13 14:56 | Outpatient (CLI) | payer MEDICAID ==
--- NOTE | 2020-08-13 16:39 | Ultrasound Report ---
PROCEDURE: OB F/U or Repeat INDICATIONS: Gestational diabetes OUTSIDE/PRIOR DATING DATA: Last menstrual period (LMP): 12/06/2019. LMP-based estimated date of delivery (STAN): 09/11/2020. First dating scan (date and location): 01/18/2020. Estimated date of delivery (STAN) from first dating scan: 09/12/2020. The below data below was generated using the provider stated STAN of 09/11/2020 TECHNIQUE: Real-time scanning was performed of the fetus, with image documentation and biometric measurements. Endovaginal scanning: Not performed COMPARISON: None. FINDINGS: General: A single living intrauterine gestation is present. Presentation: Vertex Placenta: Placental position is anterior, without previa. Amniotic fluid index: 13.5 cm, within normal limits for gestational age. Largest pocket is 5.4 cm heart rate: 140 beats per minute. Maternal cervical canal: Cervix not visualized. biometrics: Biparietal diameter: 9.1 cm, 37 weeks 0 days Head circumference: 33 cm, 37 weeks 4 days Abdominal circumference: 31.8 cm, 35 weeks 5 days Femur length: 7 cm, 36 weeks 1 day Estimated gestational age from initial scan: not applicable. Composite gestational age from present scan: 36 weeks 4 days Estimated weight and percentile: 2864 g, 59th percentile Measurement variability in biometric dating: +/- 10 days from 12-20 weeks gestation, +/- 2 weeks from 20-30 weeks gestation, +/- 3 weeks at 30 weeks gestation or more. Other: Not applicable. IMPRESSION: Single live intrauterine gestation with normal DAMIÁN and biometric parameters detailed above. Reviewed by: Mike Arguelles MD on 08/13/2020 4:37 PM PDT Approved by: Mike Arguelles MD on 08/13/2020 4:37 PM PDT Station ID: [id number]
== END 2020-08-13 14:57 | disposition home or self-care (01) ==
LOC: DI 14:56
PROVIDERS: ATTEND Obstetrics & Gynecology
DX: O24.419 Gestational diabetes mellitus in pregnancy, unspecified control (principal); O13.3 Gestational [pregnancy-induced] hypertension without significant proteinuria, third trimester; O09.90 Supervision of high risk pregnancy, unspecified, unspecified trimester; Z3A.36 36 weeks gestation of pregnancy

== ENCOUNTER 2020-08-16 11:02 | Outpatient (CLI) | payer MEDICAID ==
[2020-08-16 11:16] VITALS: BP 122/63
--- NOTE | 2020-08-16 11:56 | PROCEDURE REPORT ---
- HPI Diagnosis/Indication for NST: Gestational Diabetes (Gestational Hypertension and Gestational Diabetes.) Vital Signs Temperature 98.1 F 08/16/20 11:15 Heart Rate 96 08/16/20 11:15 Respiratory Rate 20 08/16/20 11:15 Blood Pressure 122/63 08/16/20 11:15 O2 Saturation 97 08/16/20 11:15 Temperature 98.1 F 08/16/20 11:15 Heart Rate 96 08/16/20 11:15 Respiratory Rate 20 08/16/20 11:15 Blood Pressure 122/63 08/16/20 11:15 O2 Saturation 97 08/16/20 11:15 - NST Procedure NST Procedure Start Time 11:06 Stop Time 11:30 - Results and Plan Findings/Impression: at 36 2/7, presents for NST due to Gestational Hypertension and Gestational Diabetes controlled by diet. heart rate has baseline of 140 bpm with moderate variability. Accelerations present, 2 15X15 in 20 minutes.No contractions seen. No decelrations. Category I monitor strip that is Reactive. Blood pressure of 122/63. Patient reports good movement. Patient denies contractions or SROM or vaginal bleeding. Patient states her blood sugars are in control. Patient has appointment at clinic today at 1:00pm. Patient is s cheduled for repeat on Thursday08/21/2020
== END 2020-08-16 11:45 | disposition home or self-care (01) ==
LOC: WFO 11:02 → FBP 11:05 → WFO 11:45
PROVIDERS: ATTEND Obstetrics & Gynecology
DX: O24.410 Gestational diabetes mellitus in pregnancy, diet controlled (principal); O13.3 Gestational [pregnancy-induced] hypertension without significant proteinuria, third trimester; Z3A.36 36 weeks gestation of pregnancy
CPT/HCPCS: 59025

== ENCOUNTER 2020-08-16 13:53 | Outpatient (CLI) | payer MEDICAID ==
--- NOTE | 2020-08-16 16:13 | Ultrasound Report ---
PROCEDURE: OB Limited INDICATIONS: GESTATIONAL DIABETES, GESTATIONAL HTN OUTSIDE/PRIOR DATING DATA: Last menstrual period (LMP): 12/06/2019. LMP-based estimated date of delivery (STAN): 09/11/2020. First dating scan (date and location): 6 weeks 0 days. Estimated date of delivery (STAN) from first dating scan: 09/12/2020. The below data below was generated using the provider stated LMP STAN of 09/11/2020 TECHNIQUE: Real-time scanning was performed of the fetus, with image documentation. COMPARISON: 08/13/2020 FINDINGS: A single living intrauterine gestation is present. Presentation: Vertex Placenta: Placental position is anterior, without previa. Amniotic fluid index: 11.8 cm, normal for gestational age. heart rate: 152 beats per minutes. Maternal cervical canal: 3.5 cm long; normal length is 2.5 cm or more. Estimated gestational age from initial scan: 36 weeks 2 days. ANATOMY: Chest/diaphragm: Normal. Stomach/abdomen: Normal. Right and left renal regions: Normal. Urinary bladder/pelvis: Normal. IMPRESSION: 1. 36 week 2 day estimated gestational age. 2. Normal DAMIÁN measuring 11.8 cm with a largest pocket measuring 4.1 cm. Reviewed by: Krishna Ozuna on 08/16/2020 4:12 PM PDT Approved by: Krishna Ozuna on 08/16/2020 4:12 PM PDT Station ID: [id number]
--- NOTE | 2020-08-18 09:57 | PROCEDURE REPORT ---
- NST Procedure NST Procedure Start Time 11:10 Stop Time 11:39 Patient presented for Triage and NST performed. Patient has Gestational Diabetes and Hypertension. NST Baseline is 140bpm. Moderate Variability is present. Accelerations are present 15X15 times 2. No decelerations are present. Category I NST and Reactive criteria.
== END 2020-08-16 13:54 | disposition home or self-care (01) ==
LOC: DI 13:53
PROVIDERS: ATTEND Obstetrics & Gynecology
DX: O24.419 Gestational diabetes mellitus in pregnancy, unspecified control (principal); O13.3 Gestational [pregnancy-induced] hypertension without significant proteinuria, third trimester; Z3A.36 36 weeks gestation of pregnancy

== ENCOUNTER 2020-10-04 07:00 | Outpatient (CLI) | payer MEDICAID ==
[2020-10-04 23:35] LABS: CHLAMYDIA TRACHOMATIS DNA NEGATIVE (NEGATIVE); NEISSERIA GONORRHOEAE DNA NEGATIVE (NEGATIVE); TRICHOMONAS VAGINALIS DNA NEGATIVE (NEGATIVE)
== END 2020-10-04 23:59 | disposition home or self-care (01) ==
LOC: LAB.R 07:00
PROVIDERS: ATTEND Obstetrics & Gynecology
DX: Z11.3 Encounter for screening for infections with a predominantly sexual mode of transmission (principal)
CPT/HCPCS: 87491; 87591; 87661